=== PATIENT | female | born 1950 | race Caucasian/White ===

== ENCOUNTER → 2018-12-09 | Outpatient (CLI) | payer MEDICARE ==
--- NOTE | 2018-12-09 11:37 | REP ---
Chest two views HISTORY: Automatic cardiac defibrillator Comparison: 09/27/2010 The lungs are clear. The heart is upper limits of normal in size. Epicardial and pericardial calcification is present. The pulmonary vasculature is normal in appearance. Degenerative change is present in the spine. A cardiac pacemaker is present. IMPRESSION: No acute disease. Electronically Signed by Claudio Corley MD 12/09/2018 11:28 A
--- NOTE | 2018-12-09 12:43 | REP ---
ULTRASOUND RIGHT CHEST WALL: Real-time sonographic evaluation of the right chest wall performed at the site of the palpable abnormality status post ICD extraction. There is a small area of complex fluid measuring 3.1 x 1.7 x 2.4 cm. No other abnormality is seen. This may represent hematoma or abscess. Electronically Signed by Kartik Aleman MD 12/13/2018 01:45 P
== END ==
LOC: M RAD 10:54
PROVIDERS: ATTEND Physician Assistant
DX: Z95.810 Presence of automatic (implantable) cardiac defibrillator (principal)

== ENCOUNTER → 2022-01-23 | Outpatient (CLI) | payer MEDICARE | LOC: M RAD 12:48 | PROVIDERS: ATTEND Internal Medicine Cardiovascular Disease | DX: L02.213 Cutaneous abscess of chest wall (principal); T82.7XXS Infection and inflammatory reaction due to other cardiac and vascular devices, implants and grafts, sequela ==

== ENCOUNTER 2022-01-28 14:40 | Emergency (ER) | payer MEDICARE ==
[~2022-01-28] VITALS: Ht 167.6 cm; Wt 93.7 kg
[2022-01-28] MEDS ORDERED: FURO40TA2 (15:11)
[2022-01-28] MEDS ORDERED: [UNRECOGNIZED DRUG - CODE] (15:11)
[2022-01-28] MEDS ORDERED: LISI5TAB11 (15:11)
[2022-01-28] MEDS ORDERED: ATOR1TAB19 (15:11)
[2022-01-28] MEDS ORDERED: DOXY100C3 (15:11)
[2022-01-28] MEDS ORDERED: CARV25TA (15:11)
[2022-01-28] MEDS ORDERED: LEVO125T4 (15:11)
[2022-01-28] MEDS ORDERED: OCUV1CAP4 PO (15:11)
[2022-01-28] MEDS ORDERED: SPIR-10 (15:11)
[2022-01-28] MEDS ORDERED: BENA25CA4 PO (15:11)
[2022-01-28 19:20] LABS: BASO # 0.1 10^3/uL (0.0-0.2); BASO % 1.2 % (0.0-1.0); EOS # 0.3 10^3/uL (0.0-0.5); HEMATOCRIT 29.2 % (36.0-47.0); HEMOGLOBIN 9.4 g/dl (12.0-15.5); LYMPH # 1.7 10^3/uL (1.5-5.0); LYMPH % 25.2 % (24.0-44.0); MEAN CORPUSCULAR HEMOGLOBIN 30.1 pg (27.0-33.0); MEAN CORPUSCULAR HGB CONC 32.2 g/dl (32.0-36.5); MEAN CORPUSCULAR VOLUME 93.6 fl (80.0-96.0); MONO # 0.5 10^3/uL (0.0-0.8); NEUTROPHILS # 4.1 10^3/uL (1.5-8.5); NEUTROPHILS % 61.2 % (36.0-66.0); PLATELET COUNT, AUTOMATED 544 10^3/uL (150-450); RED BLOOD COUNT 3.12 10^6/uL (4.00-5.40); WHITE BLOOD COUNT 6.8 10^3/uL (4.0-10.0)
[2022-01-28 19:38] LABS: INR 1.17; PROTHROMBIN TIME 15.4 SECONDS (12.7-14.5)
[2022-01-28 19:39] LABS: PARTIAL THROMBOPLASTIN TIME 38.1 SECONDS (25.9-37.0)
[2022-01-28 19:44] LABS: CALCIUM LEVEL 9.5 MG/DL (8.8-10.2); CREATININE FOR GFR 1.91 MG/DL (0.55-1.30); GLOMERULAR FILTRATION RATE 27.7 (>45); POTASSIUM SERUM 4.9 MEQ/L (3.5-5.1)
[2022-01-28 21:45] VITALS: BP 110/63
== END 2022-01-28 22:13 | disposition home or self-care (01) ==
LOC: M ED 14:40
DX: L02.213 Cutaneous abscess of chest wall (principal); I50.9 Heart failure, unspecified; E05.90 Thyrotoxicosis, unspecified without thyrotoxic crisis or storm; Z88.8 Allergy status to other drugs, medicaments and biological substances; Z79.899 Other long term (current) drug therapy; Z79.890 Hormone replacement therapy